=== PATIENT | female | born 1995 | race Caucasian/White ===

== ENCOUNTER 2018-07-09 00:38 | Emergency (ER) | payer OTHER | END 2018-07-09 02:12 | disposition other institution (70) | LOC: ED 00:38 | DX: Z53.21 Procedure and treatment not carried out due to patient leaving prior to being seen by health care provider (principal) ==

== ENCOUNTER 2018-07-09 00:38 | Emergency (ER) | payer SELFPAY ==
[~2018-07-09] VITALS: Ht 170.2 cm; Wt 99.8 kg
[2018-07-09 00:47] VITALS: Ht 170.2 cm; Wt 99.8 kg
[2018-07-09 02:12] VITALS: BP 143/85
== END 2018-07-09 02:12 | disposition other institution (70) ==
LOC: ED 00:38
DX: S52.502A Unspecified fracture of the lower end of left radius, initial encounter for closed fracture (principal); V43.52XA Car driver injured in collision with other type car in traffic accident, initial encounter; W22.11XA Striking against or struck by driver side automobile airbag, initial encounter; Y93.I9 Activity, other involving external motion; Y92.413 State road as the place of occurrence of the external cause; Y99.8 Other external cause status